=== PATIENT | male | born 1965 | race Caucasian/White ===

== ENCOUNTER 2017-01-24 20:13 | Emergency (ER) | payer MEDICAID ==
[2017-01-24 20:52] VITALS: BP 126/91
[2017-01-24 21:36] LABS: ABSOLUTE EOSINOPHILS # (AUTO) 0.1 10^3/uL (0.0-0.6); ABSOLUTE LYMPHOCYTES (AUTO) 1.1 10^3/uL (0.5-4.7); ABSOLUTE MONOCYTES (AUTO) 0.4 10^3/uL (0.1-1.4); ABSOLUTE NEUT (AUTO) 3.7 10^3/uL (1.7-8.2); BASOPHILS % (AUTO) 0.5 % (0-2); EOSINOPHILS % (AUTO) 2.4 % (0-6); HEMATOCRIT 42.2 % (37.9-51.0); HGB HCT DIFFERENCE -0.2; LYMPHOCYTES % (AUTO) 20.1 % (13-45); MEAN CORPUSCULAR HEMOGLOBIN 28.7 pg (27.0-33.4); MEAN CORPUSCULAR HGB CONC 33.1 g/dL (32.0-36.0); MEAN CORPUSCULAR VOLUME 87 fl (80-97); RED BLOOD COUNT 4.86 10^6/uL (4.35-5.55); RED CELL DISTRIBUTION WIDTH 13.7 % (11.5-14.0); WHITE BLOOD COUNT 5.3 10^3/uL (4.0-10.5)
[2017-01-24 21:37] LABS: APPEARANCE,URINE SLIGHTLY-CLOUDY; BILIRUBIN,URINE NEGATIVE (NEGATIVE); GLUCOSE, URINE NEGATIVE (NEGATIVE); KETONES,URINE NEGATIVE (NEGATIVE); LEUKOCYTE ESTERASE,URINE NEGATIVE (NEGATIVE); NITRITE,URINE NEGATIVE (NEGATIVE); PROTEIN,URINE 30 mg/dL (NEGATIVE); URINE SPECIFIC GRAVITY 1.015; UROBILINOGEN,URINE NEGATIVE mg/dL (<2.0)
[2017-01-24 21:58] LABS: ALANINE AMINOTRANSFERASE 36 U/L (21-72); ALBUMIN 4.4 g/dL (3.5-5.0); ALKALINE PHOSPHATASE 83 U/L (38-126); ANION GAP 14 (5-19); ASPARTATE AMINO TRANSFERASE 29 U/L (17-59); BILIRUBIN,DIRECT 0.3 mg/dL (0.0-0.4); BILIRUBIN,TOTAL 0.4 mg/dL (0.2-1.3); BLOOD UREA NITROGEN 9 mg/dL (7-20); CALCIUM 9.2 mg/dL (8.4-10.2); CARBON DIOXIDE 26 mmol/L (22-30); CHLORIDE 103 mmol/L (98-107); CREATINE KINASE 102 U/L (55-170); CREATININE RESULT 1.47 mg/dL (0.52-1.25); GLUCOSE 113 mg/dL (75-110); POTASSIUM 3.8 mmol/L (3.6-5.0); SODIUM 143.1 mmol/L (137-145); TOTAL PROTEIN 8.2 g/dL (6.3-8.2)
[2017-01-24 22:09] LABS: TROPONIN I < 0.012 ng/mL
--- NOTE | 2017-01-24 22:20 | ER Document Report ---
ED Medical Screen (RME) - General Chief Complaint: Syncope Stated Complaint: FALL/HEAD PAIN Time Seen by Provider: 01/24/17 22:17 Notes: Patient is a 51-year-old male comes emergency department for chief complaint of a laceration to the right posterior aspect of his head. 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 He states that he has been passing out since 2013 and has multiple injuries with stitches, states he just came here for wound repair. He is not on a blood thinner, denies alcohol. - Related Data Allergies/Adverse Reactions: No Known Allergies Allergy (Verified 01/24/17 20:48) Past Medical History - Past Medical History Cardiac Medical History: Reports: Hx Hypertension Renal/ Medical History: Reports: Hx Kidney Stones. Denies: Hx Peritoneal Dialysis GI Medical History: Reports: Hx Gastroesophageal Reflux Disease - Immunizations Immunizations up to date: No Physical Exam - Vital signs Vitals: Temp Pulse Resp BP Pulse Ox 98.2 F 73 16 126/91 H 100 01/24/17 20:46 01/24/17 20:46 01/24/17 20:46 01/24/17 20:46 01/24/17 20:46 - HEENT Head: No: Atraumatic - There is a 2-3 cm vertical linear laceration over the right inferior lateral aspect of the occipital scalp Course - Re-evaluation Re-evalutation: Patient alert, oriented, cooperative. The workup was already placed in protocol by nursing staff and has already been completed. 01/24/17 22:20 I have greeted and performed a rapid initial assessment of this patient. A comprehensive ED assessment and evaluation of the patient, analysis of test results and completion of the medical decision making process will be conducted by additional ED providers. - Vital Signs Vital signs: Temp Pulse Resp BP Pulse Ox 98.2 F 73 16 126/91 H 100 01/24/17 20:46 01/24/17 20:46 01/24/17 20:46 01/24/17 20:46 01/24/17 20:46 - Laboratory Result Diagrams: 01/24/17 21:00 01/24/17 21:00 Laboratory results interpreted by me: 01/24/17 01/24/17 21:00 21:00 Creatinine 1.47 H Est GFR (Non-Af Amer) 51 L Glucose 113 H Urine Protein 30 H
--- NOTE | 2017-01-25 08:20 | EKG REPORT ---
SEVERITY:- OTHERWISE NORMAL ECG - SINUS RHYTHM : Confirmed by: Ayush Herrera MD 25-Jan-2017 08:18:59
== END 2017-01-25 00:01 | disposition left against medical advice (07) ==
LOC: ER 20:13
DX: R55 Syncope and collapse (principal); S01.01XA Laceration without foreign body of scalp, initial encounter; W19.XXXA Unspecified fall, initial encounter; I10 Essential (primary) hypertension; Z87.442 Personal history of urinary calculi; K21.9 Gastro-esophageal reflux disease without esophagitis
CPT/HCPCS: 36415; 80053; 81001; 82550; 82553; 84484; 85025; 93005; 93010; 99281